=== PATIENT | female | born 1960 ===

== ENCOUNTER 2023-08-12 12:45 | Inpatient (IN) | payer OTHER ==
[~2023-08-12] VITALS: Ht 152.4 cm; Wt 67.1 kg
[2023-08-12] MEDS ORDERED: SYNTHROID100 MCG PO (15:32)
[2023-08-14] MEDS ORDERED: CEFTRIAXONE SODIUM 2,000 MG VIAL ONE (12:24)
[2023-08-14] MEDS ORDERED: POVIDONE-IODINE 118 ML BOTT TOP ONE ×2 (12:24→13:30)
[2023-08-14] MEDS ORDERED: METRONIDAZOLE/SODIUM CHLORIDE 500 MG/100 ML PIGGYBACK IV ONE ×2 (12:24→13:30)
[2023-08-14] MEDS ORDERED: BUPIVACAINE HCL/PF 0.5% 30ML ML ONE (12:50)
[2023-08-14] MEDS ORDERED: LIDOCAINE HCL 1%/Epi 20ML VIAL IJ ONE ×2 (12:50→13:30)
[2023-08-14] MEDS ORDERED: THROMBIN,HU/FIBRINOGEN/CALCIUM 10 ML SYRINGE TOP ONE ×2 (13:11→13:30)
[2023-08-14] MEDS ORDERED: VISTASEAL DUAL APPICATOR 1 EACH APPL TOP ONE ×2 (13:11→13:30)
[2023-08-14] MEDS ORDERED: BUPIVACAINE HCL/PF 0.25% 30ML VIAL InF ONE (13:30)
[2023-08-14] MEDS ORDERED: CEFTRIAXONE SODIUM 2,000 MG VIAL IV ONE (13:30)
[2023-08-14] MEDS ORDERED: MORPHINE SULFATE 4 MG/ML VIAL IV SCH (16:00)
[2023-08-14] MEDS ORDERED: RINGERS SOLUTION,LACTATED 1,000 ML IV SCH (16:00)
[2023-08-14] MEDS ORDERED: CELECOXIB 200 MG CAPSULE PO SCH (17:00)
[2023-08-14] MEDS ORDERED: ONDANSETRON HCL 2 MG/ML VIAL IV SCH (17:00)
[2023-08-14] MEDS ORDERED: CEFOXITIN SODIUM 2,000 MG VIAL IV ONE (17:53)
[2023-08-14] MEDS ORDERED: CEFOXITIN SODIUM 2,000 MG VIAL IV SCH (18:00)
[2023-08-14 18:25] LABS: HEMATOCRIT 41.7 % (36.0-45.00); HEMOGLOBIN 14.2 g/dL (12.0-15.00); MEAN CELL VOLUME 93.2 fL (80.00-100.00); MEAN CORPUSCULAR HEMOGLOBIN 31.8 pg (27.00-32.0); MEAN CORPUSCULAR HGB CONC 34.1 g/dl (32.0-36.0); PLATELET COUNT 250 K/uL (150-450); RED BLOOD COUNT 4.47 M/uL (4.00-6.00); RED CELL DISTRIBUTION WIDTH 13.4 % (11.5-14.5)
[2023-08-14 19:07] LABS: CALCIUM 9.2 mg/dL (8.5-10.1); CREATININE SERUM 0.57 mg/dL (0.55-1.02); GFR 107.83; POTASSIUM 5.29 mEq/L (3.5-5.1)
[2023-08-14] MEDS ORDERED: ACETAMINOPHEN 325 MG TABLET PO SCH (20:00)
[2023-08-14] MEDS ORDERED: GABAPENTIN 100 MG CAPSULE PO SCH (21:00)
[2023-08-15] MEDS ORDERED: LEVOTHYROXINE SODIUM 100 MCG TABLET PO SCH (06:00)
[2023-08-15] MEDS ORDERED: IRBESARTAN 75 MG TABLET PO SCH (09:00)
== END 2023-08-15 11:20 | disposition home or self-care (01) | DRG 743 ==
LOC: O/R 08-14 06:07 → SURH 08-14 12:45 → SURG 08-14 14:23 → SURH 08-14 15:45 → SURG 08-15 11:20
PROVIDERS: Surgery; ADMIT Obstetrics & Gynecology Gynecology; ATTEND Obstetrics & Gynecology Gynecology
PROC: 0UT24ZZ Resection of Bilateral Ovaries, Percutaneous Endoscopic Approach (ICD-10-PCS; 2023-08-14)
PROC: 0DNN4ZZ Release Sigmoid Colon, Percutaneous Endoscopic Approach (ICD-10-PCS; 2023-08-14)
PROC: 0UN14ZZ Release Left Ovary, Percutaneous Endoscopic Approach (ICD-10-PCS; 2023-08-14)
PROC: 0DNW4ZZ Release Peritoneum, Percutaneous Endoscopic Approach (ICD-10-PCS; 2023-08-14)
PROC: 0UT94ZZ Resection of Uterus, Percutaneous Endoscopic Approach (ICD-10-PCS; principal; 2023-08-14 15:45)
PROC: 0UT74ZZ Resection of Bilateral Fallopian Tubes, Percutaneous Endoscopic Approach (ICD-10-PCS; 2023-08-14 15:45)
DX: D25.1 Intramural leiomyoma of uterus (principal); N72 Inflammatory disease of cervix uteri; N80.03 Adenomyosis of the uterus; N95.0 Postmenopausal bleeding; E03.9 Hypothyroidism, unspecified; I10 Essential (primary) hypertension; K66.0 Peritoneal adhesions (postprocedural) (postinfection); Z20.822 Contact with and (suspected) exposure to COVID-19